=== PATIENT | male | born 1960 | race African-American/Black ===

== ENCOUNTER 2017-06-07 12:19 | Emergency (ER) | payer MEDICARE ==
[~2017-06-07] VITALS: Ht 180.3 cm; Wt 79.5 kg
[~2017-06-07 12:19] MED LIST: ANUCORT-HC25 MG RE; BAYER ASPIRIN E81 MG PO; CELEBREX200 MG PO; CYCLOBENZAPR10 MG PO; DARVOCET N-100100 - OR; DOLACET1 CAP PO; FLEXERIL10 MG PO; FLUARIX QUADRIV1 INJ IM; FLUZONE SPLT1 M1 IM; IBUPROFEN800 MG PO; LOSARTAN POT50 MG PO; MEDDOSEPAK OR; MEDDOSEPAK PO; MELOXICAM15 MG PO; METAXALONE800 M1; METAXALONE800 M1 PO; METFORMIN500 M1 PO; METFORMIN500 MG PO; NAPROSYN500 MG OR; NAPROSYN500 MG PO; NO HOME MEDS; NORCO1 TA2 PO; NORCO1 TAB PO; OXYCO/APAP1 TA5 PO; PERCOCET 5/325M1 TAB PO; PERCOCET1 TA2 OR; PRAVASTATIN SOD20 MG PO; SLEEPING AID; ULTRAM50 MG PO; VICODIN ES1 TA1 PO; Z QUIL
[2017-06-07] MEDS ORDERED: VIAGRA50 MG PO (12:41)
[2017-06-07] MEDS ORDERED: HYDROCO/APAP1 TA9 PO (12:41)
[2017-06-07] MEDS ORDERED: LOSARTAN POT50 MG PO (12:42)
[2017-06-07 13:10] LABS: HEMATOCRIT 46.1 % (39.0-50.0); HEMOGLOBIN 15.4 g/dl (14.0-18.0); IMMATURE GRANULOCYTES 0.2 % (0.0-1.0); MEAN CELL VOLUME 85.1 fL CALC (80.0-100.0); MEAN CORPUSCULAR HGB 28.4 pG CALC (26.0-32.0); MEAN CORPUSCULAR HGB CONC 33.4 g/L CALC (32.0-36.0); NEUT# 3.84 thou/uL (1.82-7.42); RED BLOOD COUNT 5.42 mill/uL (4.70-6.10); RED CELL DISTRI WIDTH 13.3 % (11.5-15.5)
[2017-06-07 13:13] LABS: COCAINE NEGATIVE (NEGATIVE); METHADONE NEGATIVE (NEGATIVE); TETRAHYDROCANNABIONOL NEGATIVE (NEGATIVE); TRICYLIC ANTIDEPRESSANTS NEGATIVE (NEGATIVE); URINE BILIRUBIN - DIPSTICK NEGATIVE (NEGATIVE); URINE BLOOD DIPSTICK TRACE-INTACT (NEGATIVE); URINE CLARITY CLEAR; URINE COLOR YELLOW; URINE GLUCOSE - DIPSTICK 100 mg/dL (NEGATIVE); URINE KETONE NEGATIVE (NEGATIVE); URINE LEUK ESTERASE NEGATIVE (NEGATIVE); URINE NITRITE - DIPSTICK NEGATIVE (Negative); URINE PH 5.5 (4.5-8.0); URINE PROTEIN - DIPSTICK NEGATIVE (NEG-TRACE); URINE SPECIFIC GRAVITY 1.025
[2017-06-07 13:14] LABS: BARBITURATES NEGATIVE (NEGATIVE); OXCYCODONE POSITIVE (NEGATIVE)
[2017-06-07 13:52] LABS: ALBUMIN 4.1 g/dL (3.2-5.0); ALKALINE PHOSPHATASE 92 u/l (38-126); ANION GAP 18 (6-22 (CALC)); BILIRUBIN, TOTAL 0.5 mg/dL (0.0-1.4); BUN 13 mg/dL (9-20); BUN/CREATININE RATIO 16 (12-20 (CALC)); CARBON DIOXIDE 23 mmol/l (22-30); CHLORIDE 105 mmol/l (95-108); CREATININE 0.8 mg/dL (0.7-1.3); GFR > 60 ML/MIN (>=60 (CALC)); GFR FOR AFR.AMER. > 60 ML/MIN (>=60 (CALC)); POTASSIUM 4.2 mmol/l (3.5-5.1); SGOT/AST 38 u/l (17-59); SGPT/ALT 44 u/l (21-72); SODIUM 141 mmol/l (137-146); TOTAL PROTEIN 7.1 g/dL (6.3-8.2)
[2017-06-07 13:53] LABS: ETHYL ALCOHOL 0 mg/dl (0-30)
[2017-06-07 16:02] VITALS: BP 118/75
== END 2017-06-07 16:07 ==
LOC: ED 12:19
PROVIDERS: Family Medicine
DX: R45.851 Suicidal ideations (principal); F32.9 Major depressive disorder, single episode, unspecified; F41.9 Anxiety disorder, unspecified; R07.9 Chest pain, unspecified; R06.02 Shortness of breath

== ENCOUNTER → 2018-05-14 | Outpatient (REF) | payer MEDICARE ==
[~2018-05-14] MED LIST changes: +HYDROCO/APAP1 TA9 PO; +VIAGRA50 MG PO
[2018-05-14 13:12] LABS: HEMATOCRIT 46.4 % (39.0-50.0); HEMOGLOBIN 15.2 g/dl (14.0-18.0); IMMATURE GRANULOCYTES 0.2 % (0.0-5.0); MEAN CELL VOLUME 88.9 fL CALC (80.0-100.0); MEAN CORPUSCULAR HGB 29.1 pG CALC (26.0-32.0); MEAN CORPUSCULAR HGB CONC 32.8 g/L CALC (32.0-36.0); NEUT# 2.31 thou/uL (1.82-7.42); RED BLOOD COUNT 5.22 mill/uL (4.70-6.10); RED CELL DISTRI WIDTH 13.2 % (11.5-15.5)
[2018-05-14 13:25] LABS: ALBUMIN 4.5 g/dL (3.2-5.0); ALKALINE PHOSPHATASE 78 u/l (38-126); ANION GAP 13 (6-22 (CALC)); BILIRUBIN, TOTAL 0.6 mg/dL (0.0-1.4); BUN 15 mg/dL (9-20); BUN/CREATININE RATIO 18 (12-20 (CALC)); CALCULATED LDLCHOLESTEROL 90 mg/dL (62-129 (CALC)); CARBON DIOXIDE 27 mmol/l (22-30); CHLORIDE 105 mmol/l (95-108); CHOLESTEROL HDL RATIO 3.4 (<4.4 (CALC)); CREATININE 0.9 mg/dL (0.7-1.3); GFR > 60 ML/MIN (>=60 (CALC)); GFR FOR AFR.AMER. > 60 ML/MIN (>=60 (CALC)); HDL CHOLESTEROL 49 mg/dL (>=40); POTASSIUM 4.6 mmol/l (3.5-5.1); SGOT/AST 29 u/l (17-59); SODIUM 141 mmol/l (137-146); TOTAL CHOLESTEROL 165 mg/dl (0-199); TOTAL PROTEIN 7.5 g/dL (6.3-8.2); TOTAL TRIGLYCERIDES 132 mg/dl (30-149); VLDL CHOLESTROL 26 mg/dl (8-62 (CALC))
== END | disposition home or self-care (01) ==
LOC: LAB 12:45
PROVIDERS: ATTEND Nurse Practitioner Family
DX: E11.69 Type 2 diabetes mellitus with other specified complication (principal); I10 Essential (primary) hypertension

== ENCOUNTER 2019-08-23 03:37 | Emergency (ER) | payer MEDICARE ==
[~2019-08-23] VITALS: Ht 180.3 cm; Wt 74.0 kg
[2019-08-23 05:31] VITALS: BP 139/71
== END 2019-08-23 05:33 | disposition home or self-care (01) ==
LOC: ED 03:37
DX: U07.1 COVID-19 (principal); J11.1 Influenza due to unidentified influenza virus with other respiratory manifestations; E11.9 Type 2 diabetes mellitus without complications; I10 Essential (primary) hypertension; Z79.84 Long term (current) use of oral hypoglycemic drugs

== ENCOUNTER 2019-08-25 12:02 | Inpatient (IN) | payer MEDICARE ==
[~2019-08-25] VITALS: Ht 177.8 cm; Wt 75.1 kg
--- NOTE | 2019-08-25 12:23 | NUR ---
PATIENT TO ROOM VIA WHEELCHAIR AND DENIES ANY SOB AT THIS TIME
--- NOTE | 2019-08-25 13:30 | NUR ---
PT STATES THAT HE WAS SENT THIS WAY BY HIS PRIMARY CARE DOC BECAUSE O2 SATS WERE LOW IN THE 80s. PT IS SATING AT 99%-100% AT THIS TIME. PT DOES ADMIT TO HAVING HEADACHE OF 1010. FLAKO GARCIA FOR PAIN
[2019-08-25 13:32] LABS: HEMATOCRIT 46.1 % (39.0-50.0); HEMOGLOBIN 15.5 g/dl (14.0-18.0); MEAN CELL VOLUME 84.3 fL CALC (80.0-100.0); MEAN CORPUSCULAR HGB 28.3 pG CALC (26.0-32.0); MEAN CORPUSCULAR HGB CONC 33.6 g/dL CAL (32.0-36.0); NEUT# 1.52 thou/uL (1.82-7.42); RED BLOOD COUNT 5.47 mill/uL (4.70-6.10); RED CELL DISTRI WIDTH 13.1 % (11.5-15.5)
[2019-08-25 14:23] LABS: ALBUMIN 4.4 g/dL (3.2-5.0); ALKALINE PHOSPHATASE 92 u/l (38-126); ANION GAP 11 (6-22 (CALC)); BILIRUBIN, TOTAL 0.5 mg/dL (0.0-1.4); BUN 17 mg/dL (9-20); BUN/CREATININE RATIO 17 (12-20 (CALC)); C-REACTIVE PROTEIN 1.4 mg/dL (0-0.9); CARBON DIOXIDE 25 mmol/l (22-30); CHLORIDE 103 mmol/l (95-108); GFR > 60 ML/MIN (>=60 (CALC)); GFR FOR AFR.AMER. > 60 ML/MIN (>=60 (CALC)); POTASSIUM 4.5 mmol/l (3.5-5.1); SGOT/AST 32 u/l (17-59); SODIUM 134 mmol/l (137-146); TOTAL PROTEIN 7.4 g/dL (6.3-8.2)
--- NOTE | 2019-08-25 14:30 | NUR ---
PT DENIES ANY PAIN AT THIS TIME. LIGHTS DIMMED FOR COMFORT
[2019-08-25 14:55] LABS: URINE BILIRUBIN - DIPSTICK NEGATIVE (NEGATIVE); URINE BLOOD DIPSTICK SMALL (NEGATIVE); URINE COLOR YELLOW; URINE GLUCOSE - DIPSTICK NEGATIVE (NEGATIVE); URINE KETONE NEGATIVE (NEGATIVE); URINE LEUK ESTERASE NEGATIVE (NEGATIVE); URINE NITRITE - DIPSTICK NEGATIVE (Negative); URINE PROTEIN - DIPSTICK TRACE mg/dL (NEG-TRACE); URINE SPECIFIC GRAVITY >=1.030; URINE UROBILINOGEN - DIPSTICK 0.2 E.U./dL (0.2)
[2019-08-25 15:06] LABS: URINE RBC 0-2 RBC/hpf (0-5); URINE WBC 0-2 WBC/hpf (0-5)
--- NOTE | 2019-08-25 15:30 | NUR ---
PT RESTING ON STRETCHER, DENIES ANY NEEDS AT THIS TIME. RETRIEVED BC
--- NOTE | 2019-08-25 16:30 | NUR ---
PT NOTIFIED OF PENDING ADMISSION. ANTIBIOTICS INFUSING INTO PATENT IV. WILL CONTINUE TO MONTIOR.
--- NOTE | 2019-08-25 17:01 | NUR ---
GAVE REPORT TO BOB
--- NOTE | 2019-08-25 17:35 | NUR ---
PT TRANSPORTED TO [facility] SURG STABLE AND IN NO DISTRSS. PT TRANSPORTED BY W/C. CARE ASSUMED TO BOB Admission Note Report Given to: Transported by: X Wheelchair Stretcher Transported with: X Nurse Transporter X Patent IV O2 X Supply Chain Coordinator Location: ICU X [facility]2
[2019-08-25 17:53] VITALS: BP 120/77
--- NOTE | 2019-08-25 18:00 | NUR ---
PT ARRIVED FROM ER VIA WC WITH STAFF. IV SITE IS FREE FROM REDNESS OR EDEMA
--- NOTE | 2019-08-25 18:10 | NUR ---
ASSESSMENT IS CMPLTED: IV SITE IS FREE FROM REDNESS OR EDEMA. HR IS REG,PULSES ARE STRONG X4, ABD IS SOFT WITH ACTIVE BS.BREATH SOUNDS ARE CLEAR, DIMINISHED AND WHEEZE. CONTINUE TO OBSERVE AND MONITOR.
[2019-08-25 19:30] VITALS: BP 115/66
--- NOTE | 2019-08-25 20:41 | NUR ---
PT ATTEMPTING TO SLEEP, C/O NOT BEING ABLE TO SLEEP. PT REPORTED MILD MIDSTERNAL PAIN ONLY WHEN COUGHING. DENIES ANY OTHER DISTRESSES AT THIS TIME. METFORMIN HELD FOR CT W/CONTRAST EARLIER THIS DAY REPORTED BY PT. WILL FOLLOW-UP WITH SLEEP AIDE.
--- NOTE | 2019-08-25 21:58 | NUR ---
PT MEDICATED W/SLEEP AIDE REQUESTED. DENIES NEED FOR PAIN OR COUGH MEDICATION AT THIS TIME. PT PROVIDED SNACK AT THIS TIME. PT REMINDED OF CALL SYSTEM AND ENCOURAGED TO CALL FOR ASSISTANCE NEEDED. CALL LIGHT AT SIDE.
[2019-08-25 23:40] VITALS: BP 116/69
--- NOTE | 2019-08-26 00:15 | NUR ---
BLOOD DRAWN FOR LAB TROPONIN LEVELS. PT TOLERATED WELL AND DENIES ANY OTHER NEEDS AT THIS TIME.
[2019-08-26 04:15] VITALS: BP 109/62
--- NOTE | 2019-08-26 05:20 | NUR ---
LABS DRAWN AT THIS TIME AND ANTIBIOTIC THERAPY ADMINISTERED. PT DENIES ANY OTHER NEEDS AT THIS TIME. CALL LIGHT AT BEDSIDE.
--- NOTE | 2019-08-26 06:05 | NUR ---
LABS DRAWN AT THIS TIME. PT TOLERATED WELL.
[2019-08-26 06:58] LABS: CHOLESTEROL HDL RATIO 4.5 (<4.4 (CALC))
[2019-08-26 08:45] VITALS: BP 105/60
--- NOTE | 2019-08-26 08:45 | NUR ---
ASSESSMENT IS COMPLETED: IV SITE IS FREE FROM REDNESS OR EDEMA. HR IS REG,PULSES ARE STRONG X4, ABD IS SOFT WITH ACTIVE BS., BREATH SOUNDS ARE CLEAR,BILATERALLY. CONTINUE TO OSBERVE AND MONITOR.
[2019-08-26 11:15] VITALS: BP 106/57
--- NOTE | 2019-08-26 12:15 | NUR ---
PT IS RELAXING IN BED WITH NO DISTRESS NOTED. IV SITE IS FREE FROM REDNESS OR EDEMA.
[2019-08-26 14:59] VITALS: BP 100/45
--- NOTE | 2019-08-26 16:00 | NUR ---
PT REMAINS RELAXING IN BED WITH NO DISTRESS NOTED. IV SITE IS FREE FROM REDNESS OR EDEMA. CONTINUE TO OBSERVE AND MONITOR.
[2019-08-26 20:30] VITALS: BP 110/63
--- NOTE | 2019-08-26 21:47 | NUR ---
PT MEDICATED AND ASSESSMENT COMPLETED AT THIS TIME. NO S/O DISTRESS NOTED. PT REPORTS FEELING SOMEWHAT BETTER TONIGHT THAN PREVIOUS NIGHT. DENIES ANY NEW SYMPTOMS. REPORTS 1 STOOL OUTPUT THIS EVENING. MILD WHEEZING MID POSTERIOR LOBE. ENCOURAGED PT TO CALL ANY NEEDS ARISE. PT DENIES NEED FOR SNACK OR ADDITIONAL DRINKS.
[2019-08-26 23:55] VITALS: BP 103/63
--- NOTE | 2019-08-27 00:09 | NUR ---
PT DENIES ANY NEEDS AT THIS TIME. BLOOD SUGAR CHECKED PER REQUEST AT THIS TIME 100. V/S ASSESSED.
[2019-08-27 04:35] VITALS: BP 131/62
--- NOTE | 2019-08-27 04:40 | NUR ---
PT SLEEPING, PATIENT ACCOUNTS MANAGER IN W/PT OBTAINING V/S. PT DENIES ANY NEEDS AT THIS TIME. NO S/O DISTRESS NOTED.
[2019-08-27 08:40] VITALS: BP 95/52
[2019-08-27 10:04] LABS: HEMATOCRIT 42.4 % (39.0-50.0); HEMOGLOBIN 14.3 g/dl (14.0-18.0); MEAN CELL VOLUME 84.8 fL CALC (80.0-100.0); MEAN CORPUSCULAR HGB 28.6 pG CALC (26.0-32.0); MEAN CORPUSCULAR HGB CONC 33.7 g/dL CAL (32.0-36.0); NEUT# 1.12 thou/uL (1.82-7.42); RED CELL DISTRI WIDTH 13.1 % (11.5-15.5)
[2019-08-27 10:17] LABS: ALBUMIN 3.8 g/dL (3.2-5.0); ALKALINE PHOSPHATASE 83 u/l (38-126); ANION GAP 10 (6-22 (CALC)); BILIRUBIN, TOTAL 0.4 mg/dL (0.0-1.4); BUN 14 mg/dL (9-20); BUN/CREATININE RATIO 15 (12-20 (CALC)); C-REACTIVE PROTEIN 2.8 mg/dL (0-0.9); CARBON DIOXIDE 25 mmol/l (22-30); CHLORIDE 101 mmol/l (95-108); CREATININE 0.9 mg/dL (0.7-1.3); GFR > 60 ML/MIN (>=60 (CALC)); GFR FOR AFR.AMER. > 60 ML/MIN (>=60 (CALC)); POTASSIUM 4.2 mmol/l (3.5-5.1); SGOT/AST 34 u/l (17-59); SODIUM 132 mmol/l (137-146); TOTAL PROTEIN 6.7 g/dL (6.3-8.2)
[2019-08-27 12:15] VITALS: BP 98/59
--- NOTE | 2019-08-27 12:51 | NUR ---
PT IN BED WITH EYES OPEN AND ABLE TO MAKE NEEDS KNOWN. SKIN WARM AND DRY TO TOUCH. NO RESPIRATORY DISTRESS NOTED. HAS NONPRODUCTIVE COUGH NOTED. MEDICATIONS GIVEN AND TOLERATED WELL. PT IS AMBULATORY WITH STEADY GAIT AND BALANCE. CONTINENT OF B/B. PT HAD CRITICAL WBC 2.0 AND MD MADE AWARE. BP MED HELD DUE TO LOW BP AND PT DECLINED METFORMIN. DENIES PAIN OR DISCOMFORT. CALL VLADIMIR FERNANDEZ REACH AND BED IN LOWEST POSITION. WILL CONTINUE TO OBSERVE
--- NOTE | 2019-08-27 20:23 | NUR ---
PT RESTING IN BED, NO SIGNS OF DISTRESS NOTED, RESP EVEN AND UNLABORED, PT ALERT AND ORIENTED X3, NO EDEMA. DISCUSSED POC, VERBALIZED UNDERSTANDING. PT VOICES NO NEEDS OR COMPLAINTS AT THIS TIME, ASSESSMENT COMPLETED, CALL LIGHT IN REACH,CONTINUE TO MONITOR.
[2019-08-27 21:01] VITALS: BP 91/54
--- NOTE | 2019-08-27 23:45 | NUR ---
PT RESTING IN BED REQUESTING COUGH SYRUP AND SLEEPING MED, PT MEDICATED PER MAR. VOICES NO NEEDS OR COMPLAINTS AT THIS TIME, CALL LIGHT IN REACH,CONTINUE TO MONITOR.
[2019-08-28 00:09] VITALS: BP 97/54
--- NOTE | 2019-08-28 04:00 | NUR ---
PT RESTING IN BED, NO SIGNS OF DISTRESS NOTED, RESP EVEN AND UNLABORED. VITALS OBTAINED, CALL LIGHT IN REACH,CONTINUE TO MONITOR.
[2019-08-28 04:48] VITALS: BP 105/60
[2019-08-28 07:41] LABS: HEMATOCRIT 42.8 % (39.0-50.0); HEMOGLOBIN 14.3 g/dl (14.0-18.0); MEAN CELL VOLUME 84.1 fL CALC (80.0-100.0); MEAN CORPUSCULAR HGB 28.1 pG CALC (26.0-32.0); MEAN CORPUSCULAR HGB CONC 33.4 g/dL CAL (32.0-36.0); NEUT# 1.4 thou/uL (1.82-7.42); RED BLOOD COUNT 5.09 mill/uL (4.70-6.10)
[2019-08-28 08:00] VITALS: BP 106/64
--- NOTE | 2019-08-28 09:00 | NUR ---
PT SEEN AWAKE, ALERT, ORIENTED X 3, AMBULATORY IN ROOM. PT STATES THAT HE FEELS BETTER TODAY. LUNGS CLEAR, RA. PT SHOWERED TODAY.
[2019-08-28 11:02] VITALS: BP 109/62
--- NOTE | 2019-08-28 12:00 | NUR ---
PT CONTINUES BEFORE WITHOUT COMPLAINT OF CHEST PAIN OR SHORNESS OF BREATH. PT AWARE OF PENDING DISCHARGE WHEN SEEN BY DR KANG THIS AFTERNOON.
[2019-08-28] MEDS ORDERED: ZITHROMAX250 MG PO (12:10)
[2019-08-28] MEDS ORDERED: METFORMIN HYDR850 MG PO (12:11)
[2019-08-28 15:18] VITALS: BP 100/63
--- NOTE | 2019-08-28 16:17 | NUR ---
PT RECEIVING ABX AT THIS TIME, WAITS FOR DR KANG TO RETURN. NO CHANGE IN STATUS. SLIGHT UNPRODUCTIVE COUGH HEARD OCCASIONALLY.
--- NOTE | 2019-08-28 19:00 | NUR ---
PT SEEN BY DR KANG THIS EVENING, DISCHARGED TO HOME. PT VERBALIZED UNDERSTANDING OF DC INSTRUCTIONS, TAKEN TO WAIT ON BENCH OUTSIDE.
== END 2019-08-28 18:45 | disposition home or self-care (01) | DRG 177 ==
LOC: ED 12:02 → ED-I 15:30 → ED 15:47 → ED-I 15:48 → MS2 16:11
PROVIDERS: Family Medicine; Nurse Practitioner Family; ADMIT Internal Medicine; ATTEND Internal Medicine
DX: U07.1 COVID-19 (principal); J12.89 Other viral pneumonia; I10 Essential (primary) hypertension; E11.9 Type 2 diabetes mellitus without complications; E78.5 Hyperlipidemia, unspecified; D72.819 Decreased white blood cell count, unspecified; Z79.84 Long term (current) use of oral hypoglycemic drugs
CPT/HCPCS: G0378; J1650; Q9967